=== PATIENT | female | born 1940 | race Caucasian/White ===

== ENCOUNTER 2016-12-26 07:15 | Inpatient (IN) | payer OTHER, BC ==
[2017-01-09] MEDS ORDERED: TRANEXAMIC ACID 800 MG in NS 100 ML IV ONE (06:00)
[2017-01-09] MEDS ORDERED: THROMBIN (BOVINE) 5,000 UNIT VIAL TP ONE (08:40)
[2017-01-09] MEDS ORDERED: BUPIVACAINE 0.25% 30 ML SDV ONE ×2 (08:40→16:38)
[2017-01-09] MEDS ORDERED: CHLORHEXIDINE GLUC HIBICLENS 118 ML BTL TP ONE (08:40)
[2017-01-09] MEDS ORDERED: BUPIVACAINE/EPI 0.25% 30 ML SDV ONE (08:41)
[2017-01-09] MEDS ORDERED: BACITRACIN 50,000 UNITS/10 ML SYR IRR ONE (08:41)
[2017-01-09] MEDS ORDERED: CITRATE DEXTROSE SOLN 500 ML BAG ONE (08:57)
[2017-01-09] MEDS ORDERED: ACETAMINOPHEN 500 MG TAB PO ONE (09:54)
[2017-01-09] MEDS ORDERED: GABAPENTIN 300 MG CAP PO ONE (09:54)
[2017-01-09] MEDS ORDERED: fentaNYL 100 MCG/2 ML INJ IT ONE (09:54)
[2017-01-09] MEDS ORDERED: DEXAMETHASONE 10 MG/ML VIAL IVP ONE (09:54)
[2017-01-09] MEDS ORDERED: morphINE PF 5 MG/10 ML INJ IT ONE (09:54)
[2017-01-09] MEDS ORDERED: LIDOCAINE 1% 2 ML INJ ID PRN (09:55)
[2017-01-09] MEDS ORDERED: LR 1,000 ML IV ONE (09:55)
--- NOTE | 2017-01-09 10:07 | PDANEPAE ---
ANE History of Present Illness 76 yo F w retained surgical hardware, here for removal and TLIF ANE Past Medical History - Cardiovascular History Hx Hypertension: No Hx Arrhythmias: No Hx Chest Pain: No Hx Coronary Artery / Peripheral Vascular Disease: No Hx CHF / Valvular Disease: No Hx Palpitations: No - Pulmonary History Hx COPD: No Hx Asthma/Reactive Airway Disease: No Hx Recent Upper Respiratory Infection: No Hx Oxygen in Use at Home: No Hx Sleep Apnea: No Sleep Apnea Screening Result - Last Documented: Negative - Neurologic History Hx Cerebrovascular Accident: No Hx Seizures: No Hx Dementia: No - Endocrine History Hx Diabetes: No Endocrine History Comment: hypothyroid - Renal History Hx Renal Disorders: No - Liver History Hx Hepatic Disorders: No - Neurological & Psychiatric Hx Hx Neurological and Psychiatric Disorders: Yes Neurological / Psychiatric History Comment: pain in lower back and legs. Tingling in legs. Affects her ambulation/balance - Cancer History Hx Cancer: No - Congenital Disorder History Hx Congenital Disorders: No - GI History Hx Gastrointestinal Disorders: No - Chronic Pain History Chronic Pain: Yes (back,legs) - Surgical History Prior Surgeries: lum fusion L3/4,L4/5,L5/S1 2008. cervical fusion -2002,2009. L knee surgery -fibula- 2009,2010. other surgery ANE Review of Systems - Exercise capacity METS (RN): 4 METS ANE Patient History - Allergies Allergies/Adverse Reactions: erythromycin base [Erythromycin Base] Allergy (Severe, Verified 01/08/17 09:41) Swelling/neck,face,throat moxifloxacin HCl [From Avelox] Allergy (Severe, Verified 01/08/17 09:41) Other-Enter Comments Penicillins Allergy (Severe, Verified 01/08/17 09:41) Swelling/neck,face,throat amoxicillin [Amoxicillin] Allergy (Intermediate, Verified 01/08/17 09:41) Hives/YEAST INFECTION codeine [Codeine] Allergy (Verified 01/08/17 09:41) Other-Enter Comments oxycodone HCl [From Percocet] Allergy (Verified 01/08/17 09:41) Other-Enter Comments propoxyphene napsylate [From Darvocet-N 100] Allergy (Verified 01/08/17 09:41) Other-Enter Comments Shellfish *RETIRED-02/03/12 [Shellfish] Allergy (Verified 01/08/17 09:41) Other-Enter Comments SCALLOPS Allergy (Severe, Uncoded 12/14/12 14:56) THROAT SWELLING/TROUBLE BREATHING ENVIRONMENTAL Allergy (Mild, Uncoded 12/24/10 16:38) Other-Enter Comments - Home Medications Home Medications: Aspirin [Aspir 81] 81 mg PO DAILY 12/13/12 [Last Taken Unknown] Multivitamins [Tab-A-Yudelka] 1 each PO DAILY 12/13/12 [Last Taken Unknown] Cholecalciferol Vit D3 [Vitamin D3 (*)] 2,000 units PO DAILY 11/18/16 [Last Taken Unknown] Fenofibrate [Tricor 145 mg (*)] 145 mg PO DAILY 11/18/16 [Last Taken Unknown] Fexofenadine HCl [Lindsay Allergy] 180 mg PO DAILY 11/18/16 [Last Taken Unknown] Herbals/Supplements -Info Only 1 ea PO DAILY 11/18/16 [Last Taken Unknown] Levothyroxine [Synthroid 88 mcg (*)] 88 mcg PO DAILY06 11/18/16 [Last Taken Unknown] - NPO status NPO Status: no food or drink >8 hours NPO Since - Liquids (Date): 01/09/17 NPO Since - Liquids (Time): 02:00 NPO Since - Solids (Date): 01/08/17 NPO Since - Solids (Time): 22:00 - Anes Hx Anes Hx: post operative nausea and vomiting - Smoking Hx Smoking Status: Never smoked - Alcohol Use Alcohol Use: None - Family Anes Hx Family Anes Hx: none ANE Labs/Vital Signs - Vital Signs Blood Pressure: 122/77 Heart Rate: 77 Respiratory Rate: 16 O2 Sat (%): 91 Height: 154.94 cm Weight: 81.647 kg ANE Physical Exam - Airway Neck exam: spinal fusion Mallampati Score: Class 3 Mouth exam: normal dental/mouth exam - Pulmonary Pulmonary: clear to auscultation - Cardiovascular Cardiovascular: regular rate and rhythym - ASA Status ASA Status: III ANE Anesthesia Plan Anesthesia Plan: general endotracheal anesthesia Lines/Monitors: arterial line Total IV Anesthesia: yes
[2017-01-09] MEDS ORDERED: SCOPOLAMINE HYDROBROMIDE 1.5 MG PATCH TD ONE (10:13)
[2017-01-09] MEDS ORDERED: MIDAZOLAM 2 MG/2 ML VIAL IVP ONE (10:13)
[2017-01-09] MEDS ORDERED: PROPOFOL/EMULSION 500 MG/50 ML BOTTLE IV ONE ×2 (10:29→14:10)
[2017-01-09] MEDS ORDERED: fentaNYL 100 MCG/2 ML INJ ONE ×2 (10:29→15:37)
[2017-01-09] MEDS ORDERED: PROPOFOL 200 MG/20 ML VIAL ONE (10:29)
[2017-01-09] MEDS ORDERED: REMIFENTANIL HCL 1 MG VIAL ONE ×2 (10:29→14:10)
[2017-01-09] MEDS ORDERED: LIDOCAINE 2% 100 MG/5 ML SYR ONE (10:38)
--- NOTE | 2017-01-09 10:45 | PDHPUP ---
History & Physical Update H&P update statement: This history and physical update is based on an assessment of the patient which was completed after admission or registration (within 24 hours), but prior to the surgery/procedure. H&P update: H&P reviewed & patient examined, no change in patient's condition since H&P completed
[2017-01-09] MEDS ORDERED: epHEDrine SULFATE 10 MG/ML SYR ONE (11:22)
[2017-01-09] MEDS ORDERED: PHENYLEPHRINE HCL 100 MCG/ML SYR ONE (11:22)
[2017-01-09] MEDS ORDERED: VANCOMYCIN HCL/NORMAL SALINE 250 ML IV ONE (11:30)
[2017-01-09] MEDS ORDERED: ONDANSETRON 4 MG/2 ML VIAL ONE (12:17)
[2017-01-09] MEDS ORDERED: DEXAMETHASONE 4 MG/ML VIAL ONE (12:17)
[2017-01-09] MEDS ORDERED: PHENYLEPHRINE 10 MG/ML SDV ONE (12:50)
[2017-01-09] MEDS ORDERED: morphINE PF 5 MG/10 ML INJ ONE (15:50)
[2017-01-09] MEDS ORDERED: HYDROmorphONE/DILAUDID 1 MG/ML SYR IVP PRN ×2 (16:09→16:52)
[2017-01-09] MEDS ORDERED: NALOXONE HCL 0.4 MG/ML INJ IVP PRN ×3 (16:09→17:00)
[2017-01-09] MEDS ORDERED: LR 500 ML IV PRN (16:09)
[2017-01-09] MEDS ORDERED: ONDANSETRON 4 MG/2 ML VIAL IVP PRN (16:52)
[2017-01-09] MEDS ORDERED: LACTULOSE 20 GM/30 ML UDCUP PO PRN (17:00)
[2017-01-09] MEDS ORDERED: BISACODYL 10 MG SUPP PR PRN (17:00)
[2017-01-09] MEDS ORDERED: morphINE PCA 30 MG/30 ML PCA IV PRN (17:00)
[2017-01-09] MEDS ORDERED: ONDANSETRON DISINTEGRATING 4 MG TAB PO PRN (17:00)
[2017-01-09] MEDS ORDERED: MAGNESIUM HYDROXIDE 30 ML UDCUP PO PRN (17:00)
--- NOTE | 2017-01-09 17:12 | SOAPPROG ---
SOAP Progress Note Assessment/Plan: Assessment: 76 yo F sp L1-S1 fusion Plan: stable HOB flat overnight do not put MILDRED to suction lovenox starts tomorrow LSO brace will be fit in am please call with neuro changes 01/09/17 17:09 Subjective: + back pain, no leg pain Objective: Vital Signs Temp Pulse Resp BP Pulse Ox 37.2 C 77 16 122/77 H 91 L 01/09/17 10:49 01/09/17 10:49 01/09/17 10:49 01/09/17 10:49 01/09/17 10:49 somnolent PERRL, EOMI no facial droop GREER x 4 + light touch ICD10 Worksheet Patient Problems: Problems Problem Status Onset Fusion of spine of lumbar region Acute - ICD10 Problem Qualifiers (1) Fusion of spine of lumbar region
--- NOTE | 2017-01-09 18:09 | GOP ---
[f rep st] OPERATIVE REPORT DATE OF OPERATION: 01/09/2017 SURGEON: Tj Dempsey MD NEUROSURGEON: Tj Dempsey MD APPLICATION PROCESSOR: DOMINIC Ann ANESTHESIA: General endotracheal. PREOPERATIVE DIAGNOSIS: Severe multilevel lumbar degenerative scoliosis with critical spinal stenos is, especially with adjacent level disease at L3-4 and L5-S1, status post a prior L4-5 instrumented fusion and decompression. Intractable back pain. Intractable bilateral lower extremity radicular a nd neurogenic claudication. Failed conservative care. High-risk surgical candidate given age, tacho rbidities, and required surgical intervention. POSTOPERATIVE DIAGNOSIS: Severe multilevel lumbar degenerative scoliosis with critical spinal steno sis, especially with adjacent level disease at L3-4 and L5-S1, status post a prior L4-5 instrumented fusion and decompression. Intractable back pain. Intractable bilateral lower extremity radicular and neurogenic claudication. Failed conservative care. High-risk surgical candidate given age, com orbidities, and required surgical intervention. PROCEDURE PERFORMED: Removal of L4-5 posterior nonsegmental (pedicle screw and [place] device) fixati on and exploration of spinal fusion, with re-instrumentation from L1 through S1 with posterior segme ntal (pedicle screws and axle device) fixation and posterolateral fusion with local autograft, bone morphogenic protein, and morselized allograft from L1 through S1. Left-sided L3-4 and L5-S1 far lat eral transpedicular decompression with redo posterior hemilaminectomy, foraminotomy, and central can al decompression at L4-5. L3-4 and L5-S1 posterior/transforaminal lumbar interbody fusions with 2 s tructural PEEK interbody spacers, local autograft, and bone morphogenic protein at each level. Use of intraoperative microscopy, fluoroscopy, and computer volumetric stereotactic navigation with intr aoperative neurophysiologic testing. Injection of intrathecal narcotic analgesics for postoperative pain control. Repair of cerebrospinal fluid leak requiring extension of laminectomy. FINDINGS: ESTIMATED BLOOD LOSS: 600 cc. INDICATIONS: The patient is a 76-year-old woman with intractable low back pain and bilateral lower extremity radicular and neurogenic claudication symptoms that have failed to improve and steadily wo rsened, despite extensive conservative care. She has severe spinal stenosis at L3-4 and L5-S1 as we ll as some re-stenosis at L4-5, status post prior L4-5 decompression and stabilization with instrume ntation. She presents now for surgical decompression and stabilization, removal and replacement of hardware, and exploration of the spinal fusion and extension of the decompression and fusion rostral ly and caudally. DESCRIPTION OF PROCEDURE: After informed consent was obtained, the patient was taken to the operati ng room and placed in a prone position on the Yordy table. The thoracolumbosacral areas were prep ped and draped in a sterile fashion. After fluoroscopic localization of the correct levels, the sub cutaneous and intramuscular tissues were infiltrated with local anesthesia. A midline linear incisi on was then created from approximately L3 through S1. This was carried down to the fascial layer, w hich was incised using monopolar electrocautery and carried in a subperiosteal plane along the spino us processes and lamina bilaterally. Intraoperative fluoroscopy was again utilized to verify the co rrect levels. As I discussed with the patient and her preoperatively, I extended the incisi on slightly rostral and explored first the L2-3 and then the L1-2 levels where there was a significa nt amount of arthritis and what appeared to be hypermobility. Based on the preoperative symptoms an d imaging studies, I felt that she had a very high chance of progressive disease at these levels and the need for future surgery in the near future, and we decided that it was in her best interests to go ahead and extend the instrumentation and fusion up to the L1 level without decompressions at tho se levels. The incision was therefore carried up and the areas exposed from L1 through S1. The dori or instrumentation was then removed at L4-5, and the microscope was brought in. Extensive decompres sions were performed on the left at the L3-4, L4-5, and L5-S1 levels, with complete unroofing of the facet joint and neural foramen at L3, L4, L5, and S1. There was an extensive amount of arthritis a nd severe central canal and neural foraminal and lateral recess stenosis. There was an area along t he left S1 nerve root that was very thin and very slightly leaky of spinal fluid. A single 4-0 Nuro manjula suture was placed after extending the hemilaminectomy defect laterally slightly in order to have a better exposure. A piece of Gelfoam was placed over this, and there was no further leakage throu ghout the case. Following this, the Xeros neuronavigational system was brought in, and using computer volumetric s tereotactic navigation, pedicle screws were placed at L1 through S1 bilaterally. Each individual sc rew was tested neurophysiologically with monopolar stimulation and interpretation of the potentials by the surgeon. Rods were then serially placed, first at L5-S1, then at L3-4, with distraction acro ss the interspaces and complete diskectomies were performed with preparation of the endplates and pl acement of 2 structural PEEK interbody spacers, local autograft, and bone morphogenic protein at eac h of those levels for L3-4 and L5-S1 posterior/transforaminal lumbar interbody fusions. The smaller rods were removed and longer rods, contoured with maximal lordotic curvature in order to hopefully prevent flat back, were then placed from L1 through S1 and a slight amount of compression was placed across the interspaces at L3-4 and L5-S1 in order to facilitate bony union and to minimize the pote ntial for posterior graft migration. The remaining lamina and facet joints were then extensively de corticated from L1 through S1 and the local autograft from the facetectomies along with morselized a llograft and bone morphogenic protein were placed out laterally for posterolateral fusion from L1 th rough S1. 200 mcg of Duramorph along with 50 mcg of fentanyl were then injected intrathecally for postoperativ e pain control. An Axle device was placed at the L1-2 level in order to hopefully prevent a transit ional failure. The subcutaneous and intramuscular tissues were re-infiltrated with local anesthesia . A drain was placed and the wound was closed in a layered fashion using interrupted Vicryl sutures followed by Steri-Strips on the skin after re-verification of good position of the screws, rods, an d interbody spacers using biplanar fluoroscopy. COMPLICATIONS: None. DISPOSITION: The patient was extubated and transferred to the recovery room in stable condition. /[id number]/MODL
[2017-01-09] MEDS: FAMOTIDINE 20 MG TAB PO SCH (21:00)
[2017-01-09] MEDS: ONDANSETRON 4 MG/2 ML VIAL IVP PRN (22:54)
[2017-01-09] MEDS: NS 1,000 ML IV SCH (22:54)
[2017-01-09] MEDS: ACETAMINOPHEN 500 MG TAB PO SCH (22:55)
[2017-01-09] MEDS: POLYETHYLENE GLYCOL 3350 17 GM PKT PO SCH (23:29)
[2017-01-09] MEDS: SENNOSIDES/DOCUSATE SODIUM TAB PO SCH (23:29)
[2017-01-10 05:07] LABS: % IMMATURE GRANULYOCYTES 0.4 % (0.0-1.1); ABSOLUTE IMMATURE GRANULOCYTES 0.04 10^3/uL (0.00-0.10); ADD DIFF? NO; ADD MORPH? NO; ADD SCAN? NO; ATYPICAL LYMPHOCYTE FLAG 0 (0-99); FRAGMENT RBC FLAG 0 (0-99); HEMATOCRIT 28.2 % (38.0-47.0); HEMOGLOBIN 8.6 g/dL (12.6-16.3); LEFT SHIFT FLG 20 (0-99); LIPEMIA HEMOLYSIS FLAG 80 (0-99); MEAN CELL HEMOGLOBIN 25.6 pg (27.9-34.1); MEAN CELL HEMOGLOBIN CONCENTR. 30.5 g/dL (32.4-36.7); MEAN CELL VOLUME 83.9 fL (81.5-99.8); MEAN PLATELET VOLUME 10.6 fL (8.7-11.7); PLATELET CLUMPS FLAG 0 (0-99); PLATELET COUNT 158 10^3/uL (150-400); RED BLOOD CELL COUNT 3.36 10^6/uL (4.18-5.33); RED CELL DISTRIBUTION WIDTH 15.9 % (11.5-15.2)
[2017-01-10 05:19] LABS: ANION GAP 6 mEq/L (8-16); CALCIUM 8.3 mg/dL (8.5-10.4); CARBON DIOXIDE 24 mEq/l (22-31); CHLORIDE 108 mEq/L (97-110); CREATININE 0.9 mg/dL (0.6-1.0); GLOMERULAR FILTRATION RATE > 60; GLUCOSE 117 mg/dL (70-100); SODIUM 138 mEq/L (134-144)
[2017-01-10] MEDS: ACETAMINOPHEN 500 MG TAB PO SCH ×3 (05:22→21:50)
[2017-01-10] MEDS: oxyCODONE IR 5 MG TAB PO PRN ×3 (05:22→21:50)
[2017-01-10] MEDS ORDERED: LEVOTHYROXINE 88 MCG TAB PO SCH (06:00)
--- NOTE | 2017-01-10 07:50 | SOAPPROG ---
SOAP Progress Note Assessment/Plan: Assessment: POD #1 sp L1-S1 fusion with L3/4 and L5/S1 TLIFs HOB flat overnight will get her up at noon per Dr. Davey Doing well, pain controlled neuro intact Plan: HOB flat until Noon. NO SUCTION to MILDRED LSO Brace ok at noon Xrays today if she can tolerate Pain control follow BP and H/H Discussed with Dr. Davey Subjective: awake, alert, denies pain, numbness, tingling or weakness Objective: Vital Signs Temp Pulse Resp BP Pulse Ox 36.8 C 89 17 102/41 L 95 01/10/17 07:31 01/10/17 07:31 01/10/17 07:31 01/10/17 07:31 01/10/17 07:31 Laboratory Results 01/10/17 04:35 01/10/17 04:35 01/09/17 01/10/17 01/11/17 05:59 05:59 05:59 Intake Total 3210 1300 Output Total 960 355 Balance 2250 945 Neuro: PASTOR to command, sens +LT MILDRED: 55ml bloody ICD10 Worksheet Patient Problems: Problems Problem Status Onset Fusion of spine of lumbar region Acute
[2017-01-10] MEDS: CETIRIZINE 10 MG TAB PO SCH (08:41)
[2017-01-10] MEDS: FAMOTIDINE 20 MG TAB PO SCH ×2 (08:41→21:51)
[2017-01-10] MEDS: morphINE SR 15 MG TAB PO SCH ×2 (08:41→08:44)
[2017-01-10] MEDS: SENNOSIDES/DOCUSATE SODIUM TAB PO SCH ×2 (08:41→21:51)
[2017-01-10] MEDS: CHOLECALCIFEROL VIT D3 1,000 UNITS TAB PO SCH (08:41)
[2017-01-10] MEDS: ENOXAPARIN 40 MG/0.4 ML SYR SC SCH (08:42)
[2017-01-10] MEDS: POLYETHYLENE GLYCOL 3350 17 GM PKT PO SCH ×3 (08:44→21:50)
[2017-01-10] MEDS ORDERED: VANCOMYCIN 1.25 GM in D5W 250 ML IV ONE (09:00)
[2017-01-10] MEDS ORDERED: NON-FORMULARY NEW DRUG (Fexofenadine Hcl [Allegra Allergy] 180 MG) PO SCH (09:00)
[2017-01-10] MEDS ORDERED: FENOFIBRATE 145 MG TAB PO SCH (09:00)
[2017-01-10] MEDS: ONDANSETRON 4 MG/2 ML VIAL IVP PRN ×2 (13:19→21:52)
--- NOTE | 2017-01-10 17:01 | GCON ---
[f rep st] CONSULTATION CRITICAL CARE CONSULT DATE OF CONSULTATION: 01/10/2017 HISTORY OF PRESENT ILLNESS: The patient is a 76-year-old female with a long-standing history of deg enerative joint disease and multiple back surgeries as well as untreated obstructive sleep apnea who underwent extensive back surgery involving L3-4 and L5 stenosis. Her surgery itself was fairly unr emarkable but postoperatively it was complicated by hypoxemia requiring up to 10 L/minute overnight. She was down to 3 L/minute this morning and said that this happens with her on nearly every surger y she gets. She does have a known history of sleep apnea and does not use CPAP and was not interest ed in using CPAP now. REVIEW OF SYSTEMS: Otherwise, her review of systems was negative. PAST MEDICAL HISTORY: Includes obstructive sleep apnea, gastroesophageal reflux disease, hypothyroi dism, hyperlipidemia, allergic rhinitis, vitamin D deficiency, obesity, a remote patellar fracture, and a wrist fracture on 01/08/2017. There was a question of an atrial mass on her preop workup that turned out to be negative after evaluation by Cardiology. PAST SURGICAL HISTORY: Includes multiple back surgeries, ankle surgery and shoulder surgery, neck s urgery. She has had a hysterectomy and a cholecystectomy as well. SOCIAL HISTORY: She is a nonsmoker. No alcohol or IV drug use. FAMILY HISTORY: Noncontributory. MEDICATIONS: At this time include Tylenol, Dulcolax, Zyrtec, vitamin D, Benadryl, Lovenox, Pepcid, TriCor, lactulose p.r.n., Synthroid, milk of magnesia, Robaxin, morphine, Zofran, vancomycin. PHYSICAL EXAMINATION: VITAL SIGNS: She is afebrile. Blood pressure 100/48, heart rate 95, respira tions 15, oxygen saturation 95% on 3 L. GENERAL: She is an obese female who was awake and alert an d oriented x3, in no apparent distress and able to speak in full sentences without using accessory m uscles for breathing. HEENT: Pupils equally round and reactive to light, nonicteric and noninjecte d. Mucous membranes are moist without erythema or exudate. NECK: Supple without adenopathy or jug ular vein distention. LUNGS: Breath sounds were clear to auscultation bilaterally without wheezes, rubs or rales. HEART: Regular rate and rhythm without murmurs, rubs, gallops. ABDOMEN: Soft, no ntender, nondistended without hepatosplenomegaly. EXTREMITIES: Show no clubbing, cyanosis, or radha a. Her left arm is in an immobilizer but her fingers are warm and moving easily without symptoms. NEUROLOGICAL: Nonfocal including cranial nerves, deep tendon reflexes. OBJECTIVE DATA: Includes a white count of 9.3, hematocrit 28.2, platelets of 158. Basic metabolic panel was essentially unremarkable. ASSESSMENT AND PLAN: 1. Hypoxemia overnight. I think this is likely a combination of atelectasis as well as her untreat ed sleep apnea which would certainly result in a postoperative oxygen requirement. I discussed the possibility of using CPAP while she was in the hospital to help prevent further comorbidities such a s arrhythmias, strokes and heart attacks but she was quite adamant against its usage. In the meanti me, I do not think that any further workup is required at this time unless her oxygenation gets wors e, but will maintain her oxygen saturation greater than 90%. 2. Anemia. This is I think an appropriate postoperative anemia and does not require transfusion. Close observation is required, though I do not see any ongoing bleeding at this time. 3. Hypothyroidism. Continue her Synthroid, she seems to be doing well with that. 4. Wrist fracture. We will have to discuss this with Ortho in terms of plans for any further manag ement. /[id number]/MODL
[2017-01-10] MEDS: NS 1,000 ML IV SCH (21:50)
[2017-01-10] MEDS: diphenhydrAMINE 25 MG CAP PO PRN (22:57)
[2017-01-11] MEDS: morphINE SR 15 MG TAB PO SCH ×3 (04:38→20:41)
[2017-01-11] MEDS: LEVOTHYROXINE 88 MCG TAB PO SCH (05:47)
[2017-01-11] MEDS: ENOXAPARIN 40 MG/0.4 ML SYR SC SCH (08:02)
[2017-01-11] MEDS: CETIRIZINE 10 MG TAB PO SCH (08:03)
[2017-01-11] MEDS: CHOLECALCIFEROL VIT D3 1,000 UNITS TAB PO SCH (08:03)
[2017-01-11] MEDS: ACETAMINOPHEN 500 MG TAB PO SCH ×3 (08:03→20:39)
[2017-01-11] MEDS: SENNOSIDES/DOCUSATE SODIUM TAB PO SCH ×2 (08:03→22:19)
[2017-01-11] MEDS: FAMOTIDINE 20 MG TAB PO SCH ×2 (08:04→20:40)
[2017-01-11] MEDS: POLYETHYLENE GLYCOL 3350 17 GM PKT PO SCH ×3 (08:30→22:19)
--- NOTE | 2017-01-11 10:43 | SOAPPROG ---
SOAP Progress Note Assessment/Plan: Assessment: POD #2 sp L1-S1 fusion with L3/4 and L5/S1 TLIFs Doing well, pain controlled, no headaches neuro intact Plan: LSO Brace MILDRED drain, output 280 xrays show intact hardware with good alignment Pain well controlled follow BP and H/H (stable currently) 01/11/17 10:42 01/11/17 10:43 01/11/17 10:46 Subjective: no complaints Objective: Vital Signs Temp Pulse Resp BP Pulse Ox 37.6 C 94 17 135/47 H 93 01/11/17 07:44 01/11/17 08:15 01/11/17 07:44 01/11/17 08:15 01/11/17 08:15 Laboratory Results 01/10/17 04:35 01/10/17 04:35 01/10/17 01/11/17 01/12/17 05:59 05:59 05:59 Intake Total 3210 2789 Output Total 960 1800 Balance 2250 989 AAOx3 PASTOR with good strength, sensation intact dressings c/d/i - Pending Discharge Pending Discharge Within 24 Hours: No Pending Discharge Within 48 Hours: Yes Pending Discharge Date: 01/13/17 Pending Discharge Time: 11:00 ICD10 Worksheet Patient Problems: Problems Problem Status Onset Fusion of spine of lumbar region Acute
[2017-01-11] MEDS: FENOFIBRATE 145 MG TAB PO SCH ×2 (12:52→13:18)
[2017-01-11] MEDS: oxyCODONE IR 5 MG TAB PO PRN (20:40)
[2017-01-11] MEDS: diphenhydrAMINE 25 MG CAP PO PRN (20:41)
[2017-01-12] MEDS: diphenhydrAMINE 25 MG CAP PO PRN ×2 (04:24→16:09)
[2017-01-12] MEDS: ACETAMINOPHEN 500 MG TAB PO SCH ×2 (06:45→14:26)
[2017-01-12] MEDS: LEVOTHYROXINE 88 MCG TAB PO SCH (06:45)
--- NOTE | 2017-01-12 07:57 | NEUSURGPN ---
Date of Surgery: 01/09/17 Post Op Day: 3 Assessment/Plan: 76 yo female s/p L1-S1 fusion with L3/4 and L5/S1 TLIF - neuro stable - pain controlled - wear brace when out of bed - postop x-rays stable - PT/OT - dispo: possibly to rehab tomorrow Subjective: No overnight issues. Has localized back pain, no LE symptoms. Objective: Awake. Alert. PERRL. Following commands Muscle strength full at 5/5 Sensation intact Catheter Insertion Date: 01/09/17 Neurosurgery Physical Exam - Vitals, I&O, Labs I and O 01/11/17 01/12/17 01/13/17 05:59 05:59 05:59 Intake Total 2789 850 Output Total 1800 1140 Balance 989 -290 Intake: Oral (ml) 800 850 IV Intake (ml) 1988 Output: Urine (ml) 1520 950 Bedside Commode 250 Catheter 1520 Toilet 700 MILDRED Drain Output (ml) 280 190 #1 Back Yordy Gonzalez 280 190 Other: Intake Quantity Yes Sufficient Number of Voids Bedside Commode 1 Toilet 1 Number of Stools Catheter 0 Toilet 1 Vital Signs Temp Pulse Resp BP Pulse Ox 37.2 C 77 16 107/49 L 90 L 01/12/17 04:00 01/12/17 00:00 01/12/17 04:00 01/11/17 20:00 01/12/17 04:00 Laboratory Results 01/10/17 04:35 01/10/17 04:35 ICD10 Worksheet Patient Problems: Problems Problem Status Onset Fusion of spine of lumbar region Acute
[2017-01-12] MEDS: FAMOTIDINE 20 MG TAB PO SCH ×2 (08:20→22:08)
[2017-01-12] MEDS: morphINE SR 15 MG TAB PO SCH ×2 (08:20→22:08)
[2017-01-12] MEDS: POLYETHYLENE GLYCOL 3350 17 GM PKT PO SCH ×3 (08:20→22:05)
[2017-01-12] MEDS: CHOLECALCIFEROL VIT D3 1,000 UNITS TAB PO SCH (08:20)
[2017-01-12] MEDS: CETIRIZINE 10 MG TAB PO SCH (08:20)
[2017-01-12] MEDS: ENOXAPARIN 40 MG/0.4 ML SYR SC SCH (08:20)
[2017-01-12] MEDS: SENNOSIDES/DOCUSATE SODIUM TAB PO SCH ×2 (08:21→22:04)
[2017-01-12] MEDS: FENOFIBRATE 145 MG TAB PO SCH (11:45)
[2017-01-12] MEDS: oxyCODONE IR 5 MG TAB PO PRN (16:10)
[2017-01-12] MEDS: PROMETHAZINE HCL 25 MG/ML INJ IVP PRN (18:28)
[2017-01-13] MEDS: ACETAMINOPHEN 500 MG TAB PO SCH ×5 (00:01→21:09)
[2017-01-13] MEDS: LEVOTHYROXINE 88 MCG TAB PO SCH (05:56)
[2017-01-13] MEDS: ENOXAPARIN 40 MG/0.4 ML SYR SC SCH (08:16)
[2017-01-13] MEDS: morphINE SR 15 MG TAB PO SCH (08:17)
[2017-01-13] MEDS: SENNOSIDES/DOCUSATE SODIUM TAB PO SCH ×2 (08:19→21:10)
[2017-01-13] MEDS: CETIRIZINE 10 MG TAB PO SCH (08:19)
[2017-01-13] MEDS: FAMOTIDINE 20 MG TAB PO SCH ×2 (08:19→21:10)
[2017-01-13] MEDS: CHOLECALCIFEROL VIT D3 1,000 UNITS TAB PO SCH (08:19)
[2017-01-13] MEDS: POLYETHYLENE GLYCOL 3350 17 GM PKT PO SCH ×3 (08:24→21:15)
--- NOTE | 2017-01-13 08:33 | NEUSURGPN ---
Assessment/Plan: 76 yo female s/p L1-S1 fusion with L3/4 and L5/S1 TLIF - neuro stable - pain controlled - wear brace when out of bed - postop x-rays stable - PT/OT -MILDRED drain productive, leave in place until Dr. Davey wishes to have it removed - dispo: possibly to rehab tomorrow Subjective: Pt resting in bedside chair, c/o incisional pain Objective: AAOx3 NAD VSS MAEx4 L arm in splint Motor 5/5 BLE MILDRED drain in place Urinary Catheter in Place: No Catheter Insertion Date: 01/09/17 Neurosurgery Physical Exam - Vitals, I&O, Labs I and O 01/12/17 01/13/17 01/14/17 05:59 05:59 05:59 Intake Total 850 100 Output Total 1140 60 Balance -290 40 Intake: Oral (ml) 850 100 Output: Urine (ml) 950 Bedside Commode 250 Toilet 700 MILDRED Drain Output (ml) 190 60 #1 Back Yordy Gonzalez 190 60 Other: Number of Voids Bedside Commode 1 3 Toilet 1 3 Number of Stools Toilet 1 1 Vital Signs Temp Pulse Resp BP Pulse Ox 37.9 C 71 16 112/58 L 91 L 01/13/17 07:44 01/13/17 07:44 01/13/17 07:44 01/13/17 07:44 01/13/17 07:44 Laboratory Results 01/10/17 04:35 01/10/17 04:35 ICD10 Worksheet Patient Problems: Problems Problem Status Onset Fusion of spine of lumbar region Acute
[2017-01-13] MEDS: FENOFIBRATE 145 MG TAB PO SCH (11:27)
[2017-01-13] MEDS: PROMETHAZINE HCL 25 MG/ML INJ IVP PRN (11:37)
[2017-01-13] MEDS: morphINE SR 30 MG TAB PO SCH (21:10)
[2017-01-14] MEDS: diphenhydrAMINE 25 MG CAP PO PRN (03:33)
[2017-01-14] MEDS: SENNOSIDES/DOCUSATE SODIUM TAB PO SCH ×2 (03:33→08:49)
[2017-01-14] MEDS: LEVOTHYROXINE 88 MCG TAB PO SCH (06:10)
[2017-01-14] MEDS: ACETAMINOPHEN 500 MG TAB PO SCH ×2 (06:10→11:23)
--- NOTE | 2017-01-14 07:27 | NEUSURGPN ---
Assessment/Plan: 76 yo female s/p L1-S1 fusion with L3/4 and L5/S1 TLIF - neuro stable - pain controlled - wear brace when out of bed - postop x-rays stable - PT/OT -MILDRED drain productive, leave in place until Dr. Davey wishes to have it removed - on 1/[address] Davey - dispo: Plan for DC to SNF today -D/w Dr Davey Subjective: Pt resting in bed, moving well. Ready to go to SNF today. Objective: AAOx3 NAD VSS MAEx4 Motor 5/5 BLE Incision dressed cdi MILDRED drain with serosanguineous dc in bulb +LT Urinary Catheter in Place: No Catheter Insertion Date: 01/09/17 - Physician Discussed Patient with : Ke Neurosurgery Physical Exam - Vitals, I&O, Labs I and O 01/13/17 01/14/17 01/15/17 05:59 05:59 05:59 Intake Total 100 900 Output Total 60 Balance 40 900 Intake: Oral (ml) 100 900 Output: MILDRED Drain Output (ml) 60 #1 Back Yordy Gonzalez 60 Other: Number of Voids Bedside Commode 3 Toilet 3 2 Number of Stools Toilet 1 Vital Signs Temp Pulse Resp BP Pulse Ox 36.9 C 74 19 138/53 H 94 01/13/17 23:09 01/13/17 23:09 01/13/17 23:09 01/13/17 23:09 01/13/17 23:09 Laboratory Results 01/10/17 04:35 01/10/17 04:35 ICD10 Worksheet Patient Problems: Problems Problem Status Onset Fusion of spine of lumbar region Acute
[2017-01-14 07:42] VITALS: BP 110/68; PULSE 63; RESP 14; TEMP 98.3; O2SAT 96
[2017-01-14] MEDS: ENOXAPARIN 40 MG/0.4 ML SYR SC SCH (08:49)
[2017-01-14] MEDS: morphINE SR 30 MG TAB PO SCH (08:50)
[2017-01-14] MEDS: FAMOTIDINE 20 MG TAB PO SCH (08:50)
[2017-01-14] MEDS: CHOLECALCIFEROL VIT D3 1,000 UNITS TAB PO SCH (08:50)
[2017-01-14] MEDS: CETIRIZINE 10 MG TAB PO SCH (08:50)
[2017-01-14] MEDS: POLYETHYLENE GLYCOL 3350 17 GM PKT PO SCH ×3 (09:02→15:22)
[2017-01-14] MEDS: METHOCARBAMOL 750 MG TAB PO PRN ×2 (11:23→15:59)
[2017-01-14] MEDS: FENOFIBRATE 145 MG TAB PO SCH ×2 (11:24→16:00)
--- NOTE | 2017-01-14 15:40 | PDIAF ---
- Diagnosis Code Status: Full Code - Medication Management Discharge Medications: Medications to Continue on Transfer Cholecalciferol Vit D3 [Vitamin D3 (*)] 2,000 units PO DAILY 11/18/16 [Last Taken 12/30/16] Fenofibrate [Tricor 145 mg (*)] 145 mg PO DAILY 11/18/16 [Last Taken 01/08/17 15 :00] Fexofenadine HCl [Lindsay Allergy] 180 mg PO DAILY 11/18/16 [Last Taken 10:00] Levothyroxine [Synthroid 88 mcg (*)] 88 mcg PO DAILY06 11/18/16 [Last Taken 02:00] Acetaminophen [Tylenol ES 500 mg (*)] 1,000 mg PO Q8HRS #0 tab 01/14/17 [Last Taken Unknown] Methocarbamol [Robaxin 750 mg (*)] 750 mg PO QID PRN #0 tab 01/14/17 [Last Taken Unknown] morphINE SR [MS Contin/Oramorph SR 30 mg (*)] 30 mg PO BID #0 tab 01/14/17 [ Last Taken Unknown] oxyCODONE IR [Oxycodone Ir (*)] 5 - 10 mg PO Q4HRS PRN #0 tab 01/14/17 [Last Taken Unknown] Discharge Medications: Refer to the Discharge Home Medication list for PRN reason. PICC Care - Routine: N/A - Orders Services needed: Registered Nurse, Certified Delivery Specialist, Physical Therapy, Occupational Therapy Diet Recommendation: no restrictions on diet Diet Texture: Regular Texture Diet - Follow Up Care Current Providers and Referrals: AKIL MILES [Primary Care Provider] - Tj Dempsey MD [Medical Doctor] -
== END 2017-01-14 17:01 | DRG 460 ==
LOC: F3N 01-09 08:59 → F2N 01-09 20:16 → F3N 01-12 12:41
PROVIDERS: ADMIT Neurological Surgery; ATTEND Neurological Surgery
PROC: 8E0WXBZ Computer Assisted Procedure of Trunk Region (ICD-10-PCS; principal; 2017-01-09 10:45)
PROC: 00NY0ZZ Release Lumbar Spinal Cord, Open Approach (ICD-10-PCS; principal; 2017-01-09 10:45)
PROC: 0SG10AJ Fusion of 2 or more Lumbar Vertebral Joints with Interbody Fusion Device, Posterior Approach, Anterior Column, Open Approach (ICD-10-PCS; principal; 2017-01-09 10:45)
PROC: 0ST20ZZ Resection of Lumbar Vertebral Disc, Open Approach (ICD-10-PCS; principal; 2017-01-09 10:45)
PROC: 4A1004G Monitoring of Central Nervous Electrical Activity, Intraoperative, Open Approach (ICD-10-PCS; principal; 2017-01-09 10:45)
PROC: 0SG30AJ Fusion of Lumbosacral Joint with Interbody Fusion Device, Posterior Approach, Anterior Column, Open Approach (ICD-10-PCS; principal; 2017-01-09 10:45)
PROC: 0SP00AZ Removal of Interbody Fusion Device from Lumbar Vertebral Joint, Open Approach (ICD-10-PCS; principal; 2017-01-09 10:45)
DX: M48.06 Spinal stenosis, lumbar region (principal); M48.07 Spinal stenosis, lumbosacral region; M41.86 Other forms of scoliosis, lumbar region; M51.36 Other intervertebral disc degeneration, lumbar region; E78.5 Hyperlipidemia, unspecified; E03.9 Hypothyroidism, unspecified; R09.02 Hypoxemia; G47.33 Obstructive sleep apnea (adult) (pediatric); K21.9 Gastro-esophageal reflux disease without esophagitis; E66.9 Obesity, unspecified
CPT/HCPCS: 97110-GP; 97116-GP; 97162-GP; 97165-GO; 97530-GP; 97535-GO; C1713; C1762; G8978-GP-CJ; G8979-GP-CI; G8987-GO-CJ; G8988-GO-CI; J1100; J1200; J1650; J2001; J2250; J2274; J2370; J2405; J2550; J2704; J3010; J3370; J7060

== ENCOUNTER 2016-12-30 10:48 | Day surgery (SDC) | payer OTHER, BC ==
[2016-12-30] MEDS ORDERED: MIDAZOLAM 2 MG/2 ML VIAL IVP ONE (10:50)
[2016-12-30] MEDS ORDERED: BENZOCAINE UNIT DOSE SPRAY HURRICAINE MM ONE (10:50)
[2016-12-30] MEDS ORDERED: NS 1,000 ML IV ONE (10:50)
[2016-12-30] MEDS ORDERED: fentaNYL 100 MCG/2 ML INJ IVP ONE (10:50)
[2016-12-30] MEDS ORDERED: PROPOFOL 200 MG/20 ML VIAL ONE (11:15)
--- NOTE | 2016-12-30 11:22 | PDANEPAE ---
ANE History of Present Illness LA thrombus found on screening TTE ANE Past Medical History - Cardiovascular History Hx Hypertension: No Hx Arrhythmias: No Hx Chest Pain: No Hx Coronary Artery / Peripheral Vascular Disease: No Hx CHF / Valvular Disease: No Hx Palpitations: No - Pulmonary History Hx COPD: No Hx Asthma/Reactive Airway Disease: No Hx Recent Upper Respiratory Infection: No Hx Oxygen in Use at Home: No Hx Sleep Apnea: No - Neurologic History Hx Cerebrovascular Accident: No Hx Seizures: No Hx Dementia: No - Endocrine History Hx Diabetes: No Endocrine History Comment: hypothyroid - Renal History Hx Renal Disorders: No - Liver History Hx Hepatic Disorders: No - Neurological & Psychiatric Hx Hx Neurological and Psychiatric Disorders: Yes Neurological / Psychiatric History Comment: pain in lower back and legs. Tingling in legs. Affects her ambulation/balance - Cancer History Hx Cancer: No - Congenital Disorder History Hx Congenital Disorders: No - GI History Hx Gastrointestinal Disorders: No - Chronic Pain History Chronic Pain: Yes (back,legs) - Surgical History Prior Surgeries: lum fusion L3/4,L4/5,L5/S1 2008. cervical fusion -2002,2009. L knee surgery -fibula- 2009,2010. other surgery ANE Review of Systems - Exercise capacity Exercise capacity: >=4 METS ANE Patient History - Allergies Allergies/Adverse Reactions: erythromycin base [Erythromycin Base] Allergy (Severe, Verified 11/25/16 10:32) Swelling/neck,face,throat moxifloxacin HCl [From Avelox] Allergy (Severe, Verified 11/25/16 10:32) Other-Enter Comments Penicillins Allergy (Severe, Verified 11/25/16 10:32) Swelling/neck,face,throat amoxicillin [Amoxicillin] Allergy (Intermediate, Verified 11/25/16 10:32) Hives/YEAST INFECTION codeine [Codeine] Allergy (Verified 11/25/16 10:32) Other-Enter Comments oxycodone HCl [From Percocet] Allergy (Verified 11/25/16 10:32) Other-Enter Comments propoxyphene napsylate [From Darvocet-N 100] Allergy (Verified 11/25/16 10:32) Other-Enter Comments Shellfish *RETIRED-02/03/12 [Shellfish] Allergy (Verified 11/25/16 10:32) Other-Enter Comments SCALLOPS Allergy (Severe, Uncoded 07/22/13 14:56) THROAT SWELLING/TROUBLE BREATHING ENVIRONMENTAL Allergy (Mild, Uncoded 12/24/10 16:38) Other-Enter Comments - Home Medications Home medications: home medication list seen and reviewed Home Medications: Aspirin [Aspir 81] 81 mg PO DAILY 12/13/12 [Last Taken Unknown] Multivitamins [Tab-A-Yudelka] 1 each PO DAILY 12/13/12 [Last Taken Unknown] Cholecalciferol Vit D3 [Vitamin D3 (*)] 2,000 units PO DAILY 11/18/16 [Last Taken Unknown] Fenofibrate [Tricor 145 mg (*)] 145 mg PO DAILY 11/18/16 [Last Taken Unknown] Fexofenadine HCl [Lindsay Allergy] 180 mg PO DAILY 11/18/16 [Last Taken Unknown] Herbals/Supplements -Info Only 1 ea PO DAILY 11/18/16 [Last Taken Unknown] Levothyroxine [Synthroid 88 mcg (*)] 88 mcg PO DAILY06 11/18/16 [Last Taken Unknown] - Anes Hx Anes Hx: no prior problems - Smoking Hx Smoking Status: Never smoked - Alcohol Use Alcohol Use: Rarely ANE Labs/Vital Signs - Vital Signs Height: 154.94 cm Weight: 82.1 kg ANE Physical Exam - Airway Neck exam: FROM Mallampati Score: Class 1 Mouth exam: normal dental/mouth exam - Pulmonary Pulmonary: no respiratory distress - Cardiovascular Cardiovascular: regular rate and rhythym - ASA Status ASA Status: III ANE Anesthesia Plan Anesthesia Plan: GA with mask
[2016-12-30] MEDS ORDERED: ATROPINE SULFATE 1 MG/10 ML SYR ONE (11:37)
--- NOTE | 2016-12-30 12:01 | POSTANESTH ---
Post Anesthetic Evaluation Cardiovascular Status: Normal, Stable Respiratory Status: Normal, Stable Level of Consciousness/Mental Status: Can Participate in Eval Pain Control: Adequate, Prn Tx Ordered Nausea/Vomiting Control: Adequate, Prn Tx Ordered Complications Possibly Related to Anesthesia: None Noted
== END 2016-12-30 13:07 | disposition home or self-care (01) ==
LOC: FCATH 10:48
PROVIDERS: ATTEND Internal Medicine Cardiovascular Disease
PROC: B245ZZ4 Ultrasonography of Left Heart, Transesophageal (ICD-10-PCS; principal; 2016-12-30)
DX: I51.89 Other ill-defined heart diseases (principal); E78.5 Hyperlipidemia, unspecified; E03.9 Hypothyroidism, unspecified
CPT/HCPCS: J0461; J2704

== ENCOUNTER → 2017-01-01 | Outpatient (CLI) | payer OTHER, BC ==
[~2017-01-01] MED LIST: REGADENOSON 0.4 MG/5 ML SYR IVP ONE
--- NOTE | 2017-01-01 14:46 | CPR ---
[f rep st] NONINVASIVE CARDIAC PROCEDURE REPORT DATE OF PROCEDURE: 01/01/2017 PROCEDURE PERFORMED: Lexiscan nuclear stress test. INDICATION: The patient is a 76-year-old female, who presents with an abnormal EKG and preop cleara nce. DESCRIPTION OF PROCEDURE: Consent was obtained. The patient was placed on continuous telemetry. H er resting EKG revealed normal sinus rhythm with heart rate of 67, P-R interval 172, QRS duration of 82, and a Q-Tc of 444. She has nonspecific ST-T wave changes and a left anterior fascicular block. The patient was unable to walk on a treadmill, and therefore she had a Lexiscan nuclear stress igor t. She was infused with Lexiscan and complained of feeling her heart race. She remained in normal sinus rhythm with 1 PVC throughout the study. She had slight accentuation of her T-wave flattening in the lateral leads with the infusion. Her blood pressure at rest was 118/72 and remained stable t hroughout the study. PLAN: Await the nuclear images. /[id number]/MODL
== END ==
LOC: FIMAGING 12:39
PROVIDERS: ATTEND Internal Medicine Cardiovascular Disease
PROC: 4A12XM4 Monitoring of Cardiac Stress, External Approach (ICD-10-PCS; principal; 2017-01-01)
DX: R94.39 Abnormal result of other cardiovascular function study (principal); R07.9 Chest pain, unspecified
CPT/HCPCS: 78452; 93017; A9500; J2785

== ENCOUNTER 2017-01-08 09:34 | Emergency (ER) | payer OTHER, BC ==
[2017-01-08 09:45] VITALS: RESP 18; TEMP 98.2; O2SAT 96
[2017-01-08] MEDS ORDERED: ONDANSETRON DISINTEGRATING 4 MG TAB PO ONE (09:58)
--- NOTE | 2017-01-08 10:04 | EDPHY ---
H & P Stated Complaint: Tripped this morning;inju L wrist;exacerbation back pain Source: Patient, Family Exam Limitations: No limitations - Personal History Current Tetanus Diphtheria and Acellular Pertussis (TDAP): Yes - Medical/Surgical History Hx Diabetes: No Other PMH: chronic back problems - Social History Smoking Status: Never smoked HPI/ROS: CHIEF COMPLAINT: Fall, wrist pain, back pain HISTORY OF PRESENT ILLNESS: Patient reports falling more get out of bed this morning. She said she stood up and was moving and tripped. She landed on her back striking the doorjamb. She had this severe pain in her left wrist. She also has exacerbation of her chronic low back pain. She has no numbness or tingling of the legs. No weakness of the legs. No incontinence of bowel or bladder. No headache. No loss of conscious. No neck pain. No chest or upper back pain. No abdominal pain. Lower extremities are baseline. No other associated complaints or modifying factors. PRIOR ORTHO INJURIES: Arthritis, lumbar discopathy ESTABLISHED ORTHOPEDIST: Dr. Cyr, Dr. Dempsey REVIEW OF SYSTEMS: Ten systems reviewed and are negative unless otherwise noted in the HPI EXAMINATION General Appearance: Alert, no distress HEENT: Normocephalic atraumatic. No Rojo sign. No raccoon eyes. EOMs are intact and PERRLA Cardiovascular: Pulses normal throughout. No murmur. Regular rate rhythm. Brisk cap refill Neurological: A&O, sensory symmetric, symmetric patellar reflexes 2+. Strength is symmetric in all 4 limbs Skin: Warm and dry, no rash. No lacerations abrasions or contusions Extremities: Severe tenderness of the left wrist including the snuffbox. Range of motion difficult to test due to pain. There is no tenderness of the left hand or fingers. No tenderness of the left forearm or elbow. No pain with extension or supination/pronation of the left elbow. No tenderness of the left shoulder. Range of motion of the elbow and shoulders are symmetric. Psychiatric: Mood and affect normal DIFFERENTIAL DIAGNOSES: Including but not limited to fracture, dislocation, sprain, strain, contusion MDM: 10:00 a.m. Mechanical fall with left wrist pain and possible closed head injury. Patient does have low back pain but this is baseline for her, for which she has a scheduled lumbar laminectomy and fusion tomorrow morning. She is neurovascular intact. No evidence of acute cord compression or cauda equina. I have ordered x -ray of the wrist as well as CT scan of the head and cervical spine. She is in no acute distress. Because she is instructed to refrain from anti- inflammatories, I have ordered IM morphine for her pain. 10:50 a.m. X-ray of the wrist reveals distal radius fracture consistent with Colles fracture as well as an ulnar styloid fracture. CT scans are pending. 11:12 a.m. Notified by radiologist Dr. Conrad. CT scans of the head and neck reveal no acute findings. Chronic changes noted. 11:20 a.m. Case discussed with Dr. Dempsey. He informs the patient is still scheduled for surgery tomorrow. She may take narcotics and Tylenol but no other medications. 11:40 a.m. Fall with closed head injury with normal CT scans. Distal radius and distal ulnar fractures with neurovascular intact status. No need for reduction given the compaction and minimal angulation. I will place her in a splint. She will follow up with her established orthopedist for definitive care. I did talk to her neurosurgeon and she is still scheduled for surgery tomorrow. She has Dilaudid at home that she may take for pain. She can also take Tylenol but no other medications. She is discharged home neurovascular intact, stable condition. ED Precautions: Worsening pain. Erythema, edema, cyanosis, pallor, paresthesia or anesthesia. SUPERVISION: This patient was independently evaluated without direct examination by the attending physician. Case was discussed with attending physician. (Stephan Lundberg) Constitutional: Initial Vital Signs Temperature (C) 36.8 C 01/08/17 09:35 Heart Rate 82 01/08/17 09:35 Respiratory Rate 18 01/08/17 09:35 Blood Pressure 148/84 H 01/08/17 09:35 O2 Sat (%) 96 01/08/17 09:35 O2 Delivery Mode Room Air Allergies/Adverse Reactions: erythromycin base [Erythromycin Base] Allergy (Severe, Verified 01/08/17 09:41) Swelling/neck,face,throat moxifloxacin HCl [From Avelox] Allergy (Severe, Verified 01/08/17 09:41) Other-Enter Comments Penicillins Allergy (Severe, Verified 01/08/17 09:41) Swelling/neck,face,throat amoxicillin [Amoxicillin] Allergy (Intermediate, Verified 01/08/17 09:41) Hives/YEAST INFECTION codeine [Codeine] Allergy (Verified 01/08/17 09:41) Other-Enter Comments oxycodone HCl [From Percocet] Allergy (Verified 01/08/17 09:41) Other-Enter Comments propoxyphene napsylate [From Darvocet-N 100] Allergy (Verified 01/08/17 09:41) Other-Enter Comments Shellfish *RETIRED-02/03/12 [Shellfish] Allergy (Verified 01/08/17 09:41) Other-Enter Comments SCALLOPS Allergy (Severe, Uncoded 12/14/12 14:56) THROAT SWELLING/TROUBLE BREATHING ENVIRONMENTAL Allergy (Mild, Uncoded 12/24/10 16:38) Other-Enter Comments Home Medications: Medication Instructions Recorded Aspirin [Aspir 81] 81 mg PO DAILY 12/13/12 Multivitamins [Tab-A-Yudelka] 1 each PO DAILY 12/13/12 Cholecalciferol Vit D3 [Vitamin D3 2,000 units PO DAILY 11/18/16 (*)] Fenofibrate [Tricor 145 mg (*)] 145 mg PO DAILY 11/18/16 Fexofenadine HCl [Lindsay Allergy] 180 mg PO DAILY 11/18/16 Herbals/Supplements -Info Only 1 ea PO DAILY 11/18/16 Levothyroxine [Synthroid 88 mcg 88 mcg PO DAILY06 11/18/16 (*)] Medical Decision Making - Diagnostics Imaging Results: Imaging Impressions Wrist X-Ray 01/08/17 09:49 Impression: 1. Acute, comminuted, nondisplaced fracture of the distal radial metaphysis with mild dorsal angulation of the distal fragment. 2. Acute fracture of the ulnar styloid process. Cervical Spine CT 01/08/17 09:58 Impression: No evidence for acute intracranial abnormality. CT Cervical Spine Without Contrast Technique: 1.25 mm helical images were obtained of the cervical spine without contrast. Multiplanar reformation was performed. Radiation dose reduction technique was utilized. Comparison: January 2014. Findings: Postsurgical changes are seen of anterior and posterior fusion of C3- C7 with a stable appearance. No evidence for hardware fracture or lucency around the hardware. Laminectomy at C5, C6, and C7. C2-C3 level demonstrates facet arthropathy on the left and mild uncovertebral joint hypertrophy causing mild to moderate left neural foraminal narrowing. C3-C4 level demonstrates uncovertebral joint hypertrophy and facet arthropathy causing mild to moderate bilateral neural foraminal narrowing. C4-C5 level demonstrates uncovertebral joint hypertrophy and spurring causing severe right and moderate severe left neural foraminal narrowing. C5-C6 level demonstrates mild uncovertebral joint hypertrophy causing mild bilateral neural foraminal narrowing. C6-C7 level demonstrates uncovertebral joint hypertrophy and spurring causing moderate to severe bilateral neural foraminal narrowing. C7-T1 level demonstrates facet arthropathy more severe on the left and uncovertebral joint hypertrophy causing moderate left and mild right neural foraminal narrowing. Impression: No evidence for acute fracture. Postsurgical changes of cervical fusion C3-C7 with a stable appearance. Multilevel degenerative change as above. Results called and discussed with Stephan Lundberg on 01/08/2017, [address] 01/08/17 09:58 Impression: No evidence for acute intracranial abnormality. CT Cervical Spine Without Contrast Technique: 1.25 mm helical images were obtained of the cervical spine without contrast. Multiplanar reformation was performed. Radiation dose reduction technique was utilized. Comparison: January 2014. Findings: Postsurgical changes are seen of anterior and posterior fusion of C3- C7 with a stable appearance. No evidence for hardware fracture or lucency around the hardware. Laminectomy at C5, C6, and C7. C2-C3 level demonstrates facet arthropathy on the left and mild uncovertebral joint hypertrophy causing mild to moderate left neural foraminal narrowing. C3-C4 level demonstrates uncovertebral joint hypertrophy and facet arthropathy causing mild to moderate bilateral neural foraminal narrowing. C4-C5 level demonstrates uncovertebral joint hypertrophy and spurring causing severe right and moderate severe left neural foraminal narrowing. C5-C6 level demonstrates mild uncovertebral joint hypertrophy causing mild bilateral neural foraminal narrowing. C6-C7 level demonstrates uncovertebral joint hypertrophy and spurring causing moderate to severe bilateral neural foraminal narrowing. C7-T1 level demonstrates facet arthropathy more severe on the left and uncovertebral joint hypertrophy causing moderate left and mild right neural foraminal narrowing. Impression: No evidence for acute fracture. Postsurgical changes of cervical fusion C3-C7 with a stable appearance. Multilevel degenerative change as above. Results called and discussed with Stephan Lundberg on 01/08/2017, 1100 hours. ED Course/Re-evaluation: I did not see this patient while she was in the emergency department. However her care was discussed with the PA while the patient for treatment. I agree with treatment plan and management (Junaid Carpio) - Data Points Medications Given: Discontinued Medications Morphine Sulfate (Morphine) 4 mg IM EDNOW ONE Stop: 01/08/17 09:58 Last Admin: 01/08/17 10:09 Dose: 4 mg Ondansetron HCl (Zofran Odt) 4 mg PO EDNOW ONE Stop: 01/08/17 09:59 Last Admin: 01/08/17 10:09 Dose: 4 mg Departure - Departure Disposition: Home, Routine, Self-Care Clinical Impression: Distal radius fracture, left Qualifiers: Encounter type: initial encounter Fracture type: closed Fracture morphology: Colles' Qualified Code(s): S52.532A - Colles' fracture of left radius, initial encounter for closed fracture Closed fracture of styloid process of left ulna Qualifiers: Encounter type: initial encounter Fracture alignment: displaced Qualified Code( s): S52.612A - Displaced fracture of left ulna styloid process, initial encounter for closed fracture Condition: Good Instructions: Wrist Fracture in Adults (ED) Referrals: AKIL MILES [Primary Care Provider] - As per Instructions Yana Cyr MD [Medical Doctor] - As per Instructions Anita Woodard MD [Medical Doctor] - As per Instructions
[2017-01-08 12:03] VITALS: BP 136/78; PULSE 78
== END 2017-01-08 12:03 | disposition home or self-care (01) ==
DX: S52.532A Colles' fracture of left radius, initial encounter for closed fracture (principal); S52.612A Displaced fracture of left ulna styloid process, initial encounter for closed fracture; W06.XXXA Fall from bed, initial encounter

== ENCOUNTER → 2017-05-07 | Outpatient (CLI) | payer OTHER, BC ==
[~2017-05-07] MED LIST changes: +GADOBUTROL 10 ML VIAL IVP ONE; -REGADENOSON 0.4 MG/5 ML SYR IVP ONE
== END ==
LOC: FIMAGING 15:11
PROVIDERS: ATTEND Orthopaedic Surgery
DX: R07.9 Chest pain, unspecified (principal); M25.512 Pain in left shoulder; M79.602 Pain in left arm; M65.812 Other synovitis and tenosynovitis, left shoulder; Z98.1 Arthrodesis status
CPT/HCPCS: 71552; A9585